=== PATIENT | female | born 1960 | race Caucasian/White ===

== ENCOUNTER 2016-10-15 02:37 | Emergency (ER) | payer OTHER ==
[~2016-10-15] VITALS: Ht 167.6 cm; Wt 87.4 kg
[2016-10-15] MEDS ORDERED: MEDROL DOSEPAK4 MG PO (03:52)
[2016-10-15] MEDS ORDERED: ZITHROMAX Z-PA250 MG PO (03:53)
[2016-10-15 04:40] VITALS: BP 114/60
== END 2016-10-15 04:56 | disposition home or self-care (01) ==
LOC: EME 02:37
DX: J45.909 Unspecified asthma, uncomplicated (principal); I10 Essential (primary) hypertension
CPT/HCPCS: 71020; 94640; 99281; 99284; J7512